=== PATIENT | male | born 2000 | race Native Hawaiian/Other Pacific Islander ===

== ENCOUNTER 2024-11-09 17:20 | Emergency (ER) | payer SELFPAY ==
[~2024-11-09] VITALS: Ht 182.9 cm; Wt 113.6 kg
[2024-11-09 17:25] VITALS: BP 105/74; PULSE 74; RESP 18; TEMP 97.7; O2SAT 98
[2024-11-09] MEDS: BACITRACIN 0.9 GM PACKET OINTMENT TP ONE (18:24)
[2024-11-09] MEDS: LIDOCAINE 5% TRANSDERMAL PATCH TD ONE (18:24)
[2024-11-09] MEDS: ACETAMINOPHEN 500 MG TABLET PO ONE (18:24)
[2024-11-09] MEDS ORDERED: IBUP-1492 PO (19:26)
[2024-11-09] MEDS ORDERED: BACI28.410 TP (19:26)
== END 2024-11-09 21:07 | disposition home or self-care (01) ==
LOC: EMS 17:20
DX: M54.6 Pain in thoracic spine (principal); M25.561 Pain in right knee; R51.9 Headache, unspecified; F17.210 Nicotine dependence, cigarettes, uncomplicated; V29.99XA Rider (driver) (passenger) of other motorcycle injured in unspecified traffic accident, initial encounter; Y93.89 Activity, other specified; Y92.410 Unspecified street and highway as the place of occurrence of the external cause; Y99.8 Other external cause status
CPT/HCPCS: 70450; 72125; 72128; 99284